=== PATIENT | male | born 1980 | race Caucasian/White ===

== ENCOUNTER 2016-06-10 20:36 | Emergency (ER) | payer OTHER ==
[2016-06-10 20:45] VITALS: BP 153/80
[2016-06-10] MEDS ORDERED: Tetan/Diph/Pertus SYR(Tdap)* 0.5 ML SYR(BOOSTRIX) use SYR IM ONE (21:30)
[2016-06-10] MEDS ORDERED: Ibuprofen TAB* 400 MG PO ONE (21:30)
== END 2016-06-10 22:38 | disposition home or self-care (01) ==
LOC: ED 20:36
DX: S61.012A Laceration without foreign body of left thumb without damage to nail, initial encounter (principal); X58.XXXA Exposure to other specified factors, initial encounter
CPT/HCPCS: 90715; 96372; 99282; A9270-GY

== ENCOUNTER 2017-06-03 12:23 | Day surgery (SDC) | payer OTHER ==
[2017-06-03 13:41] LABS: ABS Basophils 0.1 10^3/ul (0-0.2); ABS Eosinophils 0.1 10^3/ul (0-0.6); ABS Lymphocytes 1.1 10^3/ul (1.0-4.8); ABS Neutrophils 14.7 10^3/ul (1.5-7.7); ABS Nucleated RBC 0 10^3/ul; Eosinophil % 0.7 % (0-6); Hematocrit 41 % (42-52); Hemoglobin 14.1 g/dl (14.0-18.0); Lymphocyte % 6.6 % (25-47); Mean Corpuscular HGB Conc 34 g/dl (31-36); Mean Corpuscular Hemoglobin 30 pg (27-31); Mean Corpuscular Volume 88 fL (80-94); Mean Platelet Volume 9 um3 (7.4-10.4); Nucleated Red Blood Cells % 0.1; Platelet Count 219 10^3/ul (150-450); Red Blood Count 4.65 10^6/ul (4.0-5.4); Red Cell Distribution Width 13 % (10.5-15); White Blood Count 17.1 10^3/ul (3.5-10.8)
[2017-06-03 13:54] LABS: EGFR Non-African American 66.3 (>60)
[2017-06-03 13:55] LABS: Urine Appearance Clear; Urine Blood Negative (Negative); Urine Color Yellow; Urine Ketones Negative (Negative); Urine Protein Negative (Negative); Urine Specific Gravity 1.013 (1.010-1.030); Urine Urobilinogen Negative (Negative)
[2017-06-03] MEDS ORDERED: Ketorolac INJ* 30 MG/ML 1 ML VIAL IV ONE (14:37)
[2017-06-03] MEDS ORDERED: Ketorolac INJ* 30 MG/ML 1 ML VIAL ONE (14:38)
[2017-06-03] MEDS ORDERED: Iohexol 300* (CONTRAST) 10 ML SDV IV ONE (15:27)
--- NOTE | 2017-06-03 15:57 | RAD ---
INDICATION: Right lower quadrant pain COMPARISON: None TECHNIQUE: Axial source images were obtained from the hemidiaphragms to the symphysis pubis following administration of oral and intravenous contrast. 100 mL Omnipaque 300 was utilized. Coronal and sagittal reconstructed images were acquired. Lung bases: The lung bases are clear. Liver: The liver is normal in size. There are no masses. There is no ductal dilatation. Gallbladder: There are no calcified gallstones. There is no evidence of wall thickening or pericholecystic fluid. Spleen: The spleen is normal in size. There are no masses. Pancreas: There is no focal pancreatic mass or ductal dilatation. Adrenal glands: There is no evidence of adrenal mass. Kidneys: The kidneys are normal in size and position. There are prompt nephrograms and there is prompt excretion bilaterally. There are no renal parenchymal masses. There is no evidence of nephrolithiasis. Adenopathy: There is no evidence of adenopathy by size criteria. Fluid collections: Periappendiceal free fluid and inflammatory change. Small amount of free fluid right paracolic gutter. Vessels:There are no significant atherosclerotic changes involving the aorta. There is no focal aneurysm. The iliac vessels are normal in caliber. The IVC appears normal. GI tract: The upper GI tract is unremarkable. The terminal ileum is normal. The appendix is dilated and fluid-filled. There is extensive periappendiceal inflammatory change. The CT findings are consistent with acute appendicitis. There are no findings of obstruction or perforation. The remainder of the colon is normal. Pelvic organs: The uterus and adnexa appear normal Bladder: There are no bladder masses. Abdominal and pelvic soft tissues: The extraperitoneal abdominal and pelvic soft tissues appear normal.. Osseous structures: There are no acute osseous findings. Other: None IMPRESSION: CT FINDINGS OF ACUTE APPENDICITIS . Findings called directly to Dr. Solis in the emergency department following completion of the study.
[2017-06-03] MEDS ORDERED: Famotidine IV* 10 MG/ML 2 ML (20 mg) IV ONE (16:36)
[2017-06-03] MEDS ORDERED: Famotidine IV* 10 MG/ML 2 ML (20 mg) ONE (16:46)
[2017-06-03] MEDS ORDERED: Bupivacaine 0.25% SDV* 30 ML ONE (17:06)
[2017-06-03] MEDS ORDERED: Propofol* 10 MG/ML 20 ML BTL IV PUSH ONE (17:34)
[2017-06-03] MEDS ORDERED: Lidocaine 2% PF * 5 ML VIAL ONE (17:34)
[2017-06-03] MEDS ORDERED: fentaNYL* 50 MCG/ML 2 ML VIAL (100 MCG VIAL) ONE (17:36)
[2017-06-03] MEDS ORDERED: Naloxone* 0.4 MG/ML 1 ML VIAL IV PRN (18:26)
[2017-06-03] MEDS ORDERED: Acetaminophen IV 1GM/100ML * 1,000 MG/100 ML VIAL IVPB ONE (18:26)
[2017-06-03] MEDS ORDERED: PROCHLORPERAZINE INJ 5 MG/ML 2 ML VIAL IV PRN (18:26)
[2017-06-03] MEDS ORDERED: fentaNYL* 50 MCG/ML 2 ML VIAL (100 MCG VIAL) IV PRN (18:26)
[2017-06-03] MEDS ORDERED: Ondansetron INJ* 2 MG/ML VIAL ONE (18:28)
[2017-06-03] MEDS ORDERED: Acetaminophen IV 1GM/100ML * 100 ML ONE (19:14)
[2017-06-03 19:59] VITALS: BP 131/79
--- NOTE | 2017-06-03 20:43 | ED ---
Andrew Segundo Julia, scribed for Tarik Solis MD on 06/03/17 at 1351 . Abdominal Pain/Female - HPI Summary HPI Summary: This patient is a 37 year old M presenting to [facility] with a chief complaint of waxing and waning RLQ abdominal pain since last night. Patient reports mild nausea. Patient denies changes in appetite, and urinary symptoms. The patient rates the pain 6/10 in severity. Symptoms aggravated by movement and palpation. - History of Current Complaint Chief Complaint: EDAbdPain Stated Complaint: ABD PAIN Time Seen by Provider: 06/03/17 13:36 Hx Obtained From: Patient Onset/Duration: Lasting Hours Timing: Constant - waxing and waning Pain Intensity: 6 Pain Scale Used: 0-10 Numeric Location: Discrete At: RLQ Aggravating Factor(s): Movement, Other: - palpitation Alleviating Factor(s): Nothing Associated Signs and Symptoms: Positive: Nausea. Negative: Urinary Symptoms, Other: - changes in appetite Allergies/Adverse Reactions: Allergies Allergy/AdvReac Type Severity Reaction Status Date / Time No Known Allergies Allergy Verified 06/10/16 20:42 Home Medications: Home Medications Buprenorphine HCl/Naloxone HCl [Suboxone 12 mg-3 mg Sl Film] 1 film SL DAILY [History Confirmed 06/03/17] Gabapentin CAP(*) [Neurontin 400 mg CAP(*)] 400 mg PO TID 06/03/17 [History Confirmed 06/03/17] Venlafaxine EXT RELEASE CAP* [Effexor Xr CAP*] 75 mg PO DAILY 06/03/17 [History Confirmed 06/03/17] busPIRone TAB* [Buspar TAB *] 15 mg PO BID 06/03/17 [History Confirmed 06/03/17] cloNIDine TAB* [Catapres 0.1 MG TAB*] 0.4 mg PO BEDTIME 06/03/17 [History Confirmed 06/03/17] PMH/Surg Hx/FS Hx/Imm Hx Opthamlomology History: Denies: Hx Legally Blind EENT History: Denies: Hx Deafness - Immunization History Date of Tetanus Vaccine: unsure. "More than 5 years ago" Infectious Disease History: No Infectious Disease History: Denies: Traveled Outside the [place] in Last 30 Days - Social History Alcohol Use: None Substance Use Type: Reports: Prescribed Substance Use Comment - Amount & Last Used: Suboxone Smoking Status (MU): Current Some Day Smoker Review of Systems Gastrointestinal: Negative - changes in appetite Positive: Abdominal Pain, Nausea Positive: no symptoms reported All Other Systems Reviewed And Are Negative: Yes Physical Exam - Summary Physical Exam Summary: Appearance: The patient is well-nourished in no acute distress and in no acute pain. Skin: The skin is warm and dry and skin color reflects adequate perfusion. HEENT: The head is normocephalic and atraumatic. The pupils are equal and reactive. The conjunctivae are clear and without drainage. Nares are patent and without drainage. Mouth reveals moist mucous membranes and the throat is without erythema and exudate. The external ears are intact. The ear canals are patent and without drainage. The tympanic membranes are intact. Neck: the neck is supple with full range of motion and non-tender. There are no carotid bruits. There is no neck vein distension. Respiratory: Chest is non-tender. Lungs are clear to auscultation and breath sounds are symmetrical and equal. Cardiovascular: Heart is regular rate and rhythm. There is no murmur or rub auscultated. There is no peripheral edema and pulses are symmetrical and equal. Abdomen: The abdomen is soft with RLQ tenderness. There are normal bowel sounds heard in all four quadrants and there is no organomegaly palpated. Musculoskeletal: There is no back tenderness noted. Extremities are non-tender with full range of motion. There is good capillary refill. There is no peripheral edema or calf tenderness elicited. Neurological: Patient is alert and oriented to person, place and time. The patient has symmetrical motor strength in all four extremities. Cranial nerves are grossly intact. Deep tendon reflexes are symmetrical and equal in all four extremities. Psychiatric: The patient has an appropriate affect and does not exhibit any anxiety or depression. Triage Information Reviewed: Yes Vital Signs On Initial Exam: Initial Vitals Temp Pulse Resp BP Pulse Ox 100.3 F 105 18 141/76 96 06/03/17 12:51 06/03/17 12:51 06/03/17 12:51 06/03/17 12:51 06/03/17 12:51 Vital Signs Reviewed: Yes Diagnostics - Vital Signs Vital Signs Temp Pulse Resp BP Pulse Ox 06/03/17 12:51 100.3 F 105 18 141/76 96 - Laboratory Lab Results: Lab Results 06/03/17 Range/Units 13:26 WBC 17.1 H (3.5-10.8) 10^3/ul RBC 4.65 (4.0-5.4) 10^6/ul Hgb 14.1 (14.0-18.0) g/dl Hct 41 L (42-52) % MCV 88 (80-94) fL MCH 30 (27-31) pg MCHC 34 (31-36) g/dl RDW 13 (10.5-15) % Plt Count 219 (150-450) 10^3/ul MPV 9 (7.4-10.4) um3 Neut % (Auto) 86.4 H (38-83) % Lymph % (Auto) 6.6 L (25-47) % Lyon % (Auto) 6.0 (0-7) % Eos % (Auto) 0.7 (0-6) % Baso % (Auto) 0.3 (0-2) % Absolute Neuts (auto) 14.7 H (1.5-7.7) 10^3/ul Absolute Lymphs (auto) 1.1 (1.0-4.8) 10^3/ul Absolute Monos (auto) 1.0 H (0-0.8) 10^3/ul Absolute Eos (auto) 0.1 (0-0.6) 10^3/ul Absolute Basos (auto) 0.1 (0-0.2) 10^3/ul Absolute Nucleated RBC 0 10^3/ul Nucleated RBC % 0.1 Result Diagrams: 06/03/17 13:26 06/03/17 13:26 Lab Statement: Any lab studies that have been ordered have been reviewed, and results considered in the medical decision making process. - CT A/P CT Interpretation Completed By: Radiologist - CT FINDINGS OF ACUTE APPENDICITIS. ED Physician has reviewed this report. Abdominal Pain Fem Course/Dx - Course Course Of Treatment: Mr. Ham presented with several hours of abdominal pain and tenderness in the RLQ. He was found to have a leukocytosis and a subsequent CT shoed an acute appendicitis. He was taken to the OR by Dr. Cheung. - Diagnoses Provider Diagnoses: Acute appendicitis - Provider Notifications Discussed Care Of Patient With: Kiel Cheung Time Discussed With Above Provider: 16:00 Instructed by Provider To: MD Will See In ED Discharge - Discharge Plan Condition: Stable Disposition: ADMITTED TO [facility] The documentation as recorded by the Andrew harley Julia accurately reflects the service I personally performed and the decisions made by , Tarik Solis MD.
--- NOTE | 2017-06-03 22:25 | HP ---
CC: Kiel Cheung MD, [facility]* PREOPERATIVE HISTORY AND PHYSICAL: DATE OF ADMISSION: This patient is evaluated at [facility] on , 06/03/17 at 5 p.m. ATTENDING SURGEON: Kiel Cheung MD* (dictated by Ashley Can NP). CHIEF COMPLAINT: Abdominal pain. HISTORY OF PRESENT ILLNESS: The patient is a 37-year-old male, who came to the [facility] Emergency Room today complaining of right lower quadrant abdominal pain that started at 3 o'clock this morning. He had mild nausea and no vomiting; he had a formed bowel movement today and denies any dysuria. He did not take anything at home for the pain, but it was persistent. He has had no previous surgery. He last ate solid food at 8:30 p.m. yesterday and had a cup of coffee at 9:30 this morning. PAST MEDICAL HISTORY: Generally healthy, no acute or chronic conditions. He was followed for primary care by Dr. Pascual, but is switching to a new primary care provider and he cannot remember that person's name. His medications are currently prescribed by his psychiatrist, Dr. Diaz, and he does have a history of substance abuse and has been in recovery for many years. PAST SURGICAL HISTORY: None. MEDICATIONS: 1. Suboxone 12 mg p.o. daily, and he took half of that dose today. 2. Gabapentin 400 mg t.i.d., he took 1 dose today. 3. BuSpar 15 mg b.i.d. and took 1 dose today. 4. Effexor 75 mg daily and he did not take any today. 5. Clonidine 0.2 mg 2 tablets at bedtime. ALLERGIES: No known drug allergies. FAMILY HISTORY: No known anesthesia complications, bleeding tendencies or clotting disorders. SOCIAL HISTORY: He is a former smoker and quit 1 year ago; his significant other, Magaly, accompanies him today. He is in recovery from substance abuse for many years and works in a [employer] company. REVIEW OF SYSTEMS: Constitutional: No fevers, chills, excessive fatigue, or weight loss. Endocrine: No diabetes or thyroid disease. Respiratory: No dyspnea on exertion or chronic cough. Cardiovascular: No anginal chest pain or palpitations. Gastrointestinal: As described in history of present illness. Genitourinary: No dysuria. Musculoskeletal: No reported problems. Neurologic: No headache or blurred vision. No focal weakness or numbness. General: No history of deep vein thrombosis or pulmonary embolism. No bleeding tendencies. No blood transfusions and he has never received anesthesia. PHYSICAL EXAMINATION GENERAL SURVEY: The patient is a 37-year-old male, well developed, well- nourished, in no acute distress. VITAL SIGNS: Height 5 feet 10 inches, weight 180 pounds, body mass index 25.8. Blood pressure 123/80, pulse 74 and regular, respiratory rate 16, temperature initially was 100.3 and then came down to 99.3. O2 saturation 99%. HEENT: Benign. NECK: Supple; no cervical lymphadenopathy. LUNGS: Breath sounds bilaterally clear and equal. HEART: Regular rate and rhythm. No murmurs or rubs appreciated. ABDOMEN: Active bowel sounds, soft and nondistended. Tender in the right lower quadrant, no peritoneal signs. No obvious masses or organomegaly. BACK: No CVA tenderness. GENITALIA: Deferred . RECTAL: Deferred. MUSCULOSKELETAL: Full range of motion. NEUROLOGIC: Alert and oriented x3. SKIN: Warm, dry, intact. DIAGNOSTIC STUDIES/LAB DATA: CT of the abdomen and pelvis was consistent with acute appendicitis and was reviewed by Dr. Cheung. White blood count 17.1, creatinine 1.24. IMPRESSION: Acute appendicitis. PLAN: To the operating room this evening for laparoscopic appendectomy per Dr. Cheung. The relevant risks and benefits and typical postoperative recovery were discussed with the patient. His questions were answered and surgical consent was obtained. TIME SPENT: Greater than 50% in face to face history taking and patient education 60 minutes. LAURO CAN NP [id number]/[facility] #: [id number] JANIYA
--- NOTE | 2017-06-04 13:56 | OP ---
CC: Kiel Cheung MD; Dr. Yumiko Coelho at [facility]. OPERATIVE REPORT: DATE OF OPERATION: 06/03/17 DATE OF : 84 SURGEON: Kiel Cheung MD ADULT DAYCARE COORDINATOR: None. ANESTHESIOLOGIST: Dr. Carpenter. ANESTHESIA: General anesthetic, local infiltration. PRE-OP DIAGNOSIS: Acute appendicitis. POST-OP DIAGNOSIS: Acute appendicitis. OPERATIVE PROCEDURE: Laparoscopic appendectomy. OPERATIVE FINDINGS: Acute suppurative appendicitis. DESCRIPTION OF PROCEDURE: The patient was supine on the operative table. After adequate general ane sthetic, compression stockings, Betty Hugger warmer, and intravenous antibiotics, the abdomen was prep ped with antiseptic, draped in a sterile fashion. Local infiltrative anesthesia was administered. A small umbilical incision was created. Blunt port cannula was placed. Insufflation was carried out with carbon dioxide. Additional cannulae 5-mm left lower quadrant, left mid abdomen placed through s mall stab wounds under direct vision. The appendix was acutely suppurative and wrapped up behind the cecum. The cecum was mobilized off the abdominal sidewall. The base of the appendix was mobilized and divided using an [employer] stapler with a 45 mm rios cartridge. The mesoappendix was divided using a pereira cartridge. The appendix was peeled off to the back wall of the cecum. There was a little bit of purulent exudate. Suctioning and irrigation was carried out and the appendix was placed in a ret rieval bag and brought out through the umbilical site. The operative site was again examined and was in good condition. The cannulae were removed. Pneumoperitoneum was allowed to escape. Umbilical fa scia was closed with 0 Vicryl, skin with 5-0 Vicryl, followed by Steri- Strips. He tolerated the pro cedure well, was awakened and brought to Recovery in good condition. No complications. No drains. Pathologic specimen was appendix. Sponge and instrument counts correct. Estimated blood loss was 30 mL. [id number]/[id number] #: [id number]
== END 2017-06-03 17:28 | disposition home or self-care (01) ==
LOC: ED 12:23 → OR 17:28
PROVIDERS: ATTEND Surgery
DX: K35.80 Unspecified acute appendicitis (principal); R10.31 Right lower quadrant pain; R11.0 Nausea; Z72.0 Tobacco use
CPT/HCPCS: 36415; 74177; 80053; 81003; 83690; 85025; 86141; 88304; 99283; C1776; J1885; J2405; J2704; J3010; Q9967